=== PATIENT | male | born 1960 | race Caucasian/White ===

== ENCOUNTER 2018-03-10 07:35 | Day surgery (SDC) | payer OTHER ==
[2018-03-07 11:42] LABS: HEMATOCRIT 42.5 % (42.0-54.0); HEMOGLOBIN 15.3 g/dL (13.5-17.5); MCH 33.8 pg (26.0-34.0); MCV 93.8 fL (80.0-100.0); RBC 4.53 10x6/uL (4.20-6.10); RDW 13.7 % (11.5-14.5); WBC 10.5 10x3/uL (4.8-10.8)
[2018-03-07 12:07] LABS: APTT 31.2 SECONDS (22.8-39.4); INR 1.12 (0.85-1.17)
[2018-03-07 12:13] LABS: ALBUMIN 3.4 g/dL (3.4-5.0); ALKALINE PHOSPHATASE 66 U/L (46-116); ALT (SGPT) 203 U/L (10-68); BILIRUBIN - TOTAL 0.52 mg/dL (0.2-1.3); CALC OSMOLALITY 276 mosm/kg (275-300); CALCIUM 8.9 mg/dL (8.5-10.1); CARBON DIOXIDE 26.4 mmol/L (21.0-32.0); CHLORIDE - SERUM 105 mmol/L (98-107); CREATININE - SERUM 0.7 mg/dL (0.6-1.3); GLUCOSE 100 mg/dL (74-106); POTASSIUM - SERUM 4.2 mmol/L (3.5-5.1); PROTEIN - SERUM 7.7 g/dL (6.4-8.2); SODIUM 140 mmol/L (136-145); UREA NITROGEN 6 mg/dL (7-18); eGFR NON AFRICAN AMERICAN > 90 mL/min (90-120)
[~2018-03-10] VITALS: Ht 182.9 cm; Wt 77.1 kg
[~2018-03-10 07:35] MED LIST: CHRONULAC30 ML PO; CYCLOBENZAPRINE10 MG PO; TRADJENTA5 MG PO; ULTRAM50 MG PO
[2018-03-10] MEDS ORDERED: CELEBREX50 MG PO (07:56)
[2018-03-10 08:06] VITALS: BP 102/60; Ht 182.9 cm; Wt 77.1 kg
[2018-03-10] MEDS ORDERED: HYDROCODON-ACE1 EAC7 PO (11:13)
== END 2018-03-10 14:20 | disposition home or self-care (01) ==
LOC: D.OPS 07:35 → D.PAN 09:30 → D.OPS 09:30
PROVIDERS: Anesthesiology
DX: K82.8 Other specified diseases of gallbladder (principal); B19.20 Unspecified viral hepatitis C without hepatic coma; E11.9 Type 2 diabetes mellitus without complications; Z01.812 Encounter for preprocedural laboratory examination